=== PATIENT | female | born 1980 | race Hispanic/Latino ===

== ENCOUNTER 2019-03-13 17:32 | Emergency (ER) | payer BC ==
[~2019-03-13] VITALS: Ht 162.6 cm; Wt 69.9 kg
--- OUTSIDE RECORDS SUMMARY | 2019-03-13 17:34 | XMS REPORT ---
Author Author Washington Bragg Organization eClinicalWorks Address Unknown Phone Unavailable Care Team Providers Care Natural Gas Trader Name Role Phone Washington Bragg CP Unavailable Allergies, Adverse Reactions, Alerts Substance Reaction Event Type N.K.D.A. Info Not Available Non Drug Allergy Problems Problem Type Condition Code Onset Dates Condition Status Problem Rheumatoid arthritis with positive rheumatoid factor M05.9 Active Assessment Rheumatoid arthritis with positive rheumatoid factor M05.9 Active Problem Other prison (current) drug therapy Z79.899 Active Assessment Other terminal superintendent (current) drug therapy Z79.899 Active Medications Medication Code System Code Instructions Start Date End Date Status Dosage Iron NDC 10201614229 325 (65 Fe) MG Orally Once a day Active 1 tablet Folic Acid NDC 29025191533 1 MG Orally Once a day October 22, 2017 Feb 19, 2018 Active 1 tablet Methotrexate NDC 0 2.5mg Orally Once a week October 22, 2017 Feb 19, 2018 Active 4 tabs altogether x 1wk and then take 6 tabs PredniSONE NDC 0 5 MG Orally Once a day October 22, 2017 Feb 19, 2018 Active 1 tab prn Vital Signs Date/Time: October 22, 2017 BMI 29.67 Index Weight 142 lbs Height 58 in Temperature 98.1 F Cardiac Monitoring Heart Rate 72 /min Blood Pressure Diastolic 80 mm Hg Blood Pressure Systolic 128 mm Hg Results No Known Results Summary Purpose eClinicalWorks Submission
--- OUTSIDE RECORDS SUMMARY | 2019-03-13 17:34 | XMS REPORT ---
Author Author Chase Mcguire Organization eClinicalWorks Address Unknown Phone Unavailable Care Team Providers Care Intervention Specialist Name Role Phone Chase Mcguire CP Unavailable Allergies No Known Allergies Problems Problem Type Condition Code Onset Dates Condition Status Problem Other senior living (current) drug therapy Z79.899 Active Problem Rheumatoid arthritis with positive rheumatoid factor M05.9 Active Medications No Known Medications Results No Known Results Summary Purpose [facility] Submission
--- OUTSIDE RECORDS SUMMARY | 2019-03-13 17:34 | XMS REPORT | Continuity of Care Document ---
Author Author [facility] Address Unknown Phone Unavailable Care Team Providers Care Molded Goods Spot Picker Name Role Phone [employer] Unavailable Unavailable Problems Problem Status Onset Date Classification Date Reported Comments Source Rheumatoid arthritis with positive rheumatoid factor Active Problem 01/15/2019 Guerrero Mcguire Other oil heaterman (current) drug therapy Active Problem 01/15/2019 Guerrero Mcguire Polyarthralgia Active Problem 01/26/2016 Guerrero Mcguire Medications Medication Details Route Status Patient Instructions Ordering Provider Order Date Source Folic Acid 1 tablet Orally Active 1 MG Orally Once a day 10/22/2017 Guerrero Mcguire Methotrexate 4 tabs altogether x 1wk and then take 6 tabs Orally Active 2.5mg Orally Once a week 10/22/2017 Guerrero Mcguire PredniSONE 1 tab prn Orally Active 5 MG Orally Once a day 10/22/2017 Guerrero Mcguire PredniSONE 1 tab prn Orally Active 5 MG Orally Once a day 10/22/2017 Guerrero Mcguire Methotrexate 6 tabs altogether Orally Active 2.5mg Orally Once a week 10/22/2017 Guerrero Mcguire Methotrexate (Anti-Rheumatic) 4 tabs altogether once a week Orally Active 2.5 MG Orally once a week 01/24/2016 Guerrero Mcguire Folic Acid 1 tablet Orally Active 1 MG Orally Once a day 01/24/2016 Guerrero Mcguire Necon 0.5/35 (28) 1 tablet Orally Active 0.5-35 MG-MCG Orally Once a day 01/24/2016 Guerrero Mcguire PredniSONE 1 tab Orally Active 5 MG Orally Once a day 01/24/2016 Guerrero Mcguire Iron 1 tablet Orally Active 325 (65 Fe) MG Orally Once a day Guerrero Mcguire Calcium one tab orally Active 1500 mg orally daily Guerrero Mcguire Fenofibrate 1 tablet Orally Active 145 MG Orally Once a day Guerrero Mcguire Methotrexate 8 tablets by mouth Active 2.5 MG by mouth once a week Yemi Guerrero Mcguire Folic Acid 1 tablet by mouth Active 1 MG by mouth Once a day Yemi Guerrero Mcguire Allergies, Adverse Reactions, Alerts Substance Category Reaction Severity Reaction type Status Date Reported Comments Source N.K.D.A. Adverse Reaction Info Not Available Adverse Reaction Active 01/09/2019 Guerrero Mcguire Immunizations No Data Provided for This Section Results No Data Provided for This Section Pathology Reports No Data Provided for This Section Diagnostic Reports No Data Provided for This Section Consultation Notes No Data Provided for This Section Discharge Summaries No Data Provided for This Section History and Physicals No Data Provided for This Section Vital Signs Vital Sign Value Date Comments Source Weight 154.2 01/09/2019 Guerrero Mcguire Height 58 01/09/2019 Guerrero Mcguire Temperature Oral (F) 98.5 F 01/09/2019 Guerrero Mcguire Heart Rate 72 01/09/2019 Guerrero Mcguire Diastolic (mm Hg) 68 01/09/2019 Guerrero Mcguire Systolic (mm Hg) 110 01/09/2019 Guerrero Mcguire Weight 156.5 09/23/2018 Guerrero Mcguire Height 58 09/23/2018 Guerrero Mcguire Temperature Oral (F) 98.3 F 09/23/2018 Guerrero Mcguire Heart Rate 74 09/23/2018 Guerrero Mcguire Diastolic (mm Hg) 70 09/23/2018 Guerrero Mcguire Systolic (mm Hg) 110 09/23/2018 Guerrero Mcguire Weight 142 10/22/2017 Guerrero Mcguire Height 58 10/22/2017 Guerrero Mcguire Temperature Oral (F) 98.1 F 10/22/2017 Guerrero Mcugire Heart Rate 72 10/22/2017 Guerrero Mcguire Diastolic (mm Hg) 80 10/22/2017 Guerrero Mcguire Systolic (mm Hg) 128 10/22/2017 Guerrero Mcguire Weight 142.2 10/31/2016 Guerrero Mcguire Height 58 10/31/2016 Guerrero Mcguire Temperature Oral (F) 98.5 F 10/31/2016 Guerrero Mcguire Heart Rate 72 10/31/2016 Guerrero Mcguire Diastolic (mm Hg) 70 10/31/2016 Guerrero Mcguire Systolic (mm Hg) 100 10/31/2016 Guerrero Mcguire Weight 144 01/24/2016 Guerrero Mcguire Height 58.5 01/24/2016 Guerrero Mcguire Temperature Oral (F) 97.4 F 01/24/2016 Guerrero Mcguire Heart Rate 76 01/24/2016 Guerrero Mcguire Diastolic (mm Hg) 78 01/24/2016 Guerrero Mcguire Systolic (mm Hg) 122 01/24/2016 Guerrero Lewiser Encounters Location Location Details Encounter Type Encounter Number Reason For Visit Attending Provider ADM Date DC Date Status Source Chase Mcguire MD pain arm [id number] 08/26/2014 08/26/2014 Guerrero Mcguire MD pain arm [id number] 08/26/2014 08/26/2014 Guerrero Mcguire MD PAIN ON HANDS [id number] 01/24/2016 01/24/2016 Guerrero Mcguire MD PAIN ON HANDS [id number] 01/24/2016 01/24/2016 Guerrero Mcguire MD NS APPT 07/17 [id number] 07/17/2016 07/17/2016 Guerrero Mcguire Procedures No Data Provided for This Section Assessment and Plan No Data Provided for This Section Plan of Care No Data Provided for This Section Social History Social History Date Source Social History ElementQualifiersDate Reported Diet: no. Jan 24, 2016 Alcohol Screening: . Points: 1 Jan 24, 2016 Tobacco Use: . Are you a:: current smoker , How often do you smoke cigarettes?: every day, How many cigarettes a day do you smoke?: 6-10, How soon after you wake up do you smoke your first cigarette?: 6-30 min Jan 24, 2016 Marital Status: . Jan 24, 2016 Caffeine: yes. frequency:, 1-5 Jan 24, 2016 Exercise: no. Jan 24, 2016 Alcohol: socially. Type: , beer Jan 24, 2016 Occupation: . house Jan 24, 2016 01/24/2016 Guerrero Mcguire Family History No Data Provided for This Section Advance Directives No Data Provided for This Section Functional Status No Data Provided for This Section
--- OUTSIDE RECORDS SUMMARY | 2019-03-13 17:34 | XMS REPORT ---
Author Author Washington Bragg [facility] eClinicalWorks Address Unknown Phone Unavailable Care Team Providers Care Flame Annealing Machine Setter Name Role Phone Washington Bragg Unavailable Allergies, Adverse Reactions, Alerts Substance Reaction Event Type N.K.D.A. Info Not Available Non Drug Allergy Problems Problem Type Condition Code Onset Dates Condition Status Problem Rheumatoid arthritis with positive rheumatoid factor M05.9 Active Problem Other long-term (current) drug therapy Z79.899 Active Assessment Rheumatoid arthritis with positive rheumatoid factor M05.9 Active Assessment Other petroleum terminal plant operator (current) drug therapy Z79.899 Active Medications Medication Code System Code Instructions Start Date End Date Status Dosage Folic Acid [facility] 68434709197 1 MG Orally Once a day October 22, 2017 Active 1 tablet Iron [facility] 22917679231 325 (65 Fe) MG Orally Once a day Active 1 tablet PredniSONE ND 51169696686 5 MG Orally Once a day October 22, 2017 December 22, 2018 Active 1 tab prn Methotrexate ND 84962507010 2.5mg Orally Once a week October 22, 2017 December 22, 2018 Active 6 tabs altogether Vital Signs Date/Time: September 23, 2018 BMI 32.70 Index Weight 156.5 lbs Height 58 in Temperature 98.3 F Cardiac Monitoring Heart Rate 74 /min Blood Pressure Diastolic 70 mm Hg Blood Pressure Systolic 110 mm Hg Results Name Result Date Reference Range Unit Abnormality Flag CBC W/AUTO DIFF ----MONOCYTES 5.9 [id number] 4.0-13.0 % ----LYMPHOCYTES 26.7 20180923 19.0-48.0 % ----HEMOGLOBIN 15.0 20180923 11.5-15.5 G/DL ----HEMATOCRIT 43.3 20180923 34.0-45.0 % ----MCV 88.4 20180923 80.0-100.0 fL ----MCH 30.6 20180923 27.0-34.0 PG ----MCHC 34.6 28152788 32.0-35.5 G/DL ----PLATELET COUNT 308 33920462 130-400 K/UL ----RDW 12.9 60869618 11.0-15.0 % ----BASOPHILS 0.4 64454649 0.0-2.0 % ----WBC 10.2 99019865 4.0-11.0 K/UL ----NEUTROPHILS 65.7 45278367 40.0-74.0 % ----RBC 4.90 39299031 3.80-5.10 M/UL ----EOSINOPHILS 1.3 95864365 0.0-7.0 % C-REACTIVE PROTEIN ----C-REACTIVE PROTEIN 0.5 40038709 <0.5 MG/DL COMPREHENSIVE METABOLIC PANEL ----CALC A/G RATIO 1.8 84799062 1.0-2.6 RATIO ----CALC GLOBULIN 2.5 55980801 1.9-3.7 G/DL ----ALKALINE PHOSPHATASE 122 37017599 40-112 U/L H ----BILIRUBIN, TOTAL 0.3 31117217 <=1.2 MG/DL ----CHLORIDE 106 85000264 95-107 MEQ/L ----ALT 18 45544497 5-40 U/L ----POTASSIUM 3.9 99689941 3.5-5.4 MEQ/L ----AST 13 82960708 9-40 U/L ----SODIUM 144 13132096 133-146 MEQ/L ----CALC BUN/CREAT 19 19134214 6-28 RATIO ---- eGFR NON- AMER. 121 51213449 >60 ML/MIN/1.73 ----CALCIUM 9.2 34084777 8.5-10.5 MG/DL ----CARBON DIOXIDE 27 33328721 19-31 MEQ/L ----ALBUMIN 4.4 96517683 3.5-5.2 G/DL ----PROTEIN, TOTAL 6.9 81360947 6.1-8.3 G/DL ----GLUCOSE 108 50717152 70-99 MG/DL H ----BUN 10 90273901 6-20 MG/DL ----CREATININE 0.54 07191879 0.60-1.30 MG/DL L ---- eGFR AMER. 141 59650731 >60 ML/MIN/1.73 SEDIMENTATION RATE ----SEDIMENTATION RATE 8 76158813 0-20 MM/HOUR Summary Purpose eClinicalWorks Submission
--- OUTSIDE RECORDS SUMMARY | 2019-03-13 17:34 | XMS REPORT ---
Author Author Washington Bragg [facility] eClinicalWorks Address Unknown Phone Unavailable Care Team Providers Care Airport Operations Duty Manager Name Role Phone Washington Bragg Unavailable Allergies, Adverse Reactions, Alerts Substance Reaction Event Type N.K.D.A. Info Not Available Non Drug Allergy Encounters Encounter Location Date pain arm Chase Mcguire MD August 26, 2014 PAIN ON HANDS Chase Mcguire MD Jan 24, 2016 Problems Problem Type Condition ICD-9 Code Onset Dates Condition Status Problem Other skilled nursing (current) drug therapy Z79.899 Active Problem Polyarthralgia 719.49 Active Problem Rheumatoid arthritis with positive rheumatoid factor M05.9 Active Assessment Rheumatoid arthritis with positive rheumatoid factor M05.9 Active Assessment Other intermediate manager (current) drug therapy Z79.899 Active Medications Medication Code System Code Instructions Start Date End Date Status Dosage [facility] [address]-43 2.5 MG Orally Jan 24, 2016 Active 4 tabs altogether once a week Folic Acid [facility] [address]-21 1 MG Orally Once a day Jan 24, 2016 Mar 24, 2016 Active 1 tablet Necon 0.5/35 (28) [facility] [address]-99 0.5-35 MG-MCG Orally Once a day Jan 24, 2016 Active 1 tablet PredniSONE Unknown 0 5 MG Orally Once a day Jan 24, 2016 Mar 24, 2016 Active 1 tab Social History Social History Element Qualifiers Date Reported Diet: no. Jan 24, 2016 Alcohol Screening: . Points: Jan 24, 2016 Tobacco Use: . Are [...] 2016 Occupation: . house Jan 24, 2016 Vital Signs Date/Time: Jan 24, 2016 Weight 144 lbs Height 58.5 in Temperature 97.4 F Cardiac Monitoring Heart Rate 76 /min Blood Pressure Diastolic 78 mm Hg Blood Pressure Systolic 122 mm Hg Summary Purpose eClinicalWorks Submission
--- OUTSIDE RECORDS SUMMARY | 2019-03-13 17:34 | XMS REPORT ---
Author Author Chase Mcguire Organization eClinicalWorks Address Unknown Phone Unavailable Care Team Providers Care Cost And Risk Analysis Manager Name Role Phone Chase Mcguire CP Unavailable Allergies No Known Allergies Problems Problem Type Condition Code Onset Dates Condition Status Problem Rheumatoid arthritis with positive rheumatoid factor M05.9 Active Problem Other termination clerk (current) drug therapy Z79.899 Active Medications No Known Medications Results No Known Results Summary Purpose [facility] Submission
--- OUTSIDE RECORDS SUMMARY | 2019-03-13 17:34 | XMS REPORT ---
Author Author Chase Mcguire [facility] eClinicalWorks Address Unknown Phone Unavailable Care Team Providers Care Clerk Checker Name Role Phone Chase Mcguire Unavailable Encounters Encounter Location Date pain arm Chase Mcguire MD August 26, 2014 PAIN ON HANDS Chase Mcguire MD Jan 24, 2016 NS APPT 07/17 Chase Mcguire MD Jul 17, 2016 Problems Problem Type Condition ICD-9 Code Onset Dates Condition Status Problem Other retirement (current) drug therapy Z79.899 Active Problem Rheumatoid arthritis with positive rheumatoid factor M05.9 Active Social History Social History Element Qualifiers Date [...] 2016 Occupation: . house Jan 24, 2016 Summary Purpose eClinicalWorks Submission
--- OUTSIDE RECORDS SUMMARY | 2019-03-13 17:34 | XMS REPORT ---
Author Author [facility] Address Unknown Phone Unavailable Care Team Providers Care Assembler Gold Frame Name Role Phone Unavailable Unavailable Payers Payer Name Policy Type Policy Number Effective Date Expiration Date Problems This patient has no known problems. Allergies, Adverse Reactions, Alerts This patient has no known allergies or adverse reactions. Medications This patient has no known medications.
--- OUTSIDE RECORDS SUMMARY | 2019-03-13 17:34 | XMS REPORT ---
Author Author Washington Bragg [facility] eClinicalWorks Address Unknown Phone Unavailable Care Team Providers Care Center Punch Operator Name Role Phone Washington Bragg Unavailable Allergies, Adverse Reactions, Alerts Substance Reaction Event Type N.K.D.A. Info Not Available Non Drug Allergy Problems Problem Type Condition Code Onset Dates Condition Status Problem Other penitentiary (current) drug therapy Z79.899 Active Assessment Rheumatoid arthritis with positive rheumatoid factor M05.9 Active Problem Rheumatoid arthritis with positive rheumatoid factor M05.9 Active Assessment Other long term care social worker (current) drug therapy Z79.899 Active Medications Medication Code System Code Instructions Start Date End Date Status Dosage Calcium NDC 0 1500 mg orally daily Active one tab Methotrexate (Anti-Rheumatic) [facility] [address]-16 2.5 MG Orally once a week Jan 24, 2016 Active 4 tabs altogether once a week Fenofibrate [facility] [address]-50 145 MG Orally Once a day Active 1 tablet Folic Acid [facility] [address]-56 1 MG Orally Once a day Jan 24, 2016 Feb 28, 2017 Active 1 tablet Vital Signs Date/Time: October 31, 2016 BMI 29.72 Index Weight 142.2 lbs Height 58 in Temperature 98.5 F Cardiac Monitoring Heart Rate 72 /min Blood Pressure Diastolic 70 mm Hg Blood Pressure Systolic 100 mm Hg Results Name Result Date Reference Range Unit Abnormality Flag COMPREHENSIVE METABOLIC PANEL W/EGFR ----CALCIUM 9.2 10604007 8.6-10.2 mg/dL N ----CARBON DIOXIDE 27 93435085 20-31 mmol/L N ----ALT 19 40097440 6-29 U/L N ----CREATININE 0.71 45746521 0.50-1.10 mg/dL N ----AST 15 32879545 10-30 U/L N ----eGFR NON-AFR. WELSH 111 17156894 > OR=60 mL/min/1.73m2 N ----ALKALINE PHOSPHATASE 69 16837435 33-115 U/L N ----eGFR 129 20161031 > OR=60 mL/min/1.73m2 N ----BILIRUBIN, TOTAL 0.4 03950363 0.2-1.2 mg/dL N ----BUN/CREATININE RATIO NOT APPLICABLE 36154955 6-22 (calc) ----ALBUMIN/GLOBULIN RATIO 1.8 35203566 1.0-2.5 (calc) N ----SODIUM 137 44158138 135-146 mmol/L N ----GLOBULIN 2.4 33011916 1.9-3.7 g/dL (calc) N ----POTASSIUM 4.5 35333991 3.5-5.3 mmol/L N ----GLUCOSE 90 68920144 65-99 mg/dL N ----CHLORIDE 105 61885764 98-110 mmol/L N ----ALBUMIN 4.3 10758105 3.6-5.1 g/dL N ----UREA NITROGEN (BUN) 14 20161031 7-25 mg/dL N ----PROTEIN, TOTAL 6.7 32601685 6.1-8.1 g/dL N SED RATE BY MODIFIED WESTERGREN ----SED RATE BY MODIFIED WESTERGREN 2 94084309 < OR=20 mm/h N C-REACTIVE PROTEIN ----C-REACTIVE PROTEIN <0.10 38415501 <0.80 mg/dL N CBC (INCLUDES DIFF/PLT) ----MCHC 33.5 41820845 32.0-36.0 g/dL N ----MCH 32.1 25159101 27.0-33.0 pg N ----PLATELET COUNT 281 32017866 140-400 Thousand/uL N ----RDW 13.6 32952700 11.0-15.0 % N ----BASOPHILS 0.3 36492464 % N ----ABSOLUTE NEUTROPHILS 6072 33712899 1623-2697 cells/uL N ----ABSOLUTE LYMPHOCYTES 2803 90220622 850-3900 cells/uL N ----MPV 8.1 38099712 7.5-12.5 fL N ----ABSOLUTE BASOPHILS 29 89935566 0-200 cells/uL N ----HEMATOCRIT 42.8 07009656 35.0-45.0 % N ----NEUTROPHILS 62.6 78385995 % N ----MCV 95.8 11357259 80.0-100.0 fL N ----RED BLOOD CELL COUNT 4.47 62224624 3.80-5.10 Million/uL N ----ABSOLUTE MONOCYTES 669 77586670 200-950 cells/uL N ----ABSOLUTE EOSINOPHILS 126 38023493 15-500 cells/uL N ----HEMOGLOBIN 14.4 12786702 11.7-15.5 g/dL N ----EOSINOPHILS 1.3 95485944 % N ----WHITE BLOOD CELL COUNT 9.7 68852428 3.8-10.8 Thousand/uL N ----LYMPHOCYTES 28.9 03514640 % N ----MONOCYTES 6.9 36273956 % N Summary Purpose eClinicalWorks Submission
--- OUTSIDE RECORDS SUMMARY | 2019-03-13 17:34 | XMS REPORT ---
Author Author Washington Bragg [facility] eClinicalWorks Address Unknown Phone Unavailable Care Team Providers Care Service Porter Name Role Phone Washington Bragg Unavailable Allergies, Adverse Reactions, Alerts Substance Reaction Event Type N.K.D.A. Info Not Available Non Drug Allergy Problems Problem Type Condition Code Onset Dates Condition Status Problem Rheumatoid arthritis with positive rheumatoid factor M05.9 Active Problem Other prison (current) drug therapy Z79.899 Active Assessment Rheumatoid arthritis with positive rheumatoid factor M05.9 Active Assessment Other intermediate teacher (current) drug therapy Z79.899 Active Medications Medication Code System Code Instructions Start Date End Date Status Dosage Iron [facility] 19675477771 325 (65 Fe) MG Orally Once a day Active 1 tablet Methotrexate [facility] 07375741146 2.5 MG by mouth once a week Active 8 tablets Folic Acid [facility] 14506131377 1 MG by mouth Once a day Active 1 tablet Vital Signs Date/Time: January 09, 2019 BMI 32.22 Index Weight 154.2 lbs Height 58 in Temperature 98.5 F Cardiac Monitoring Heart Rate 72 /min Blood Pressure Diastolic 68 mm Hg Blood Pressure Systolic 110 mm Hg Results Name Result Date Reference Range Unit Abnormality Flag CBC W/AUTO DIFF ----MONOCYTES 7.3 82440160 4.0-13.0 % ----LYMPHOCYTES 31.7 58730423 19.0-48.0 % ----HEMOGLOBIN 14.1 78093135 11.5-15.5 G/DL ----HEMATOCRIT 41.0 83796432 34.0-45.0 % ----MCV 92.8 05154789 80.0-100.0 fL ----MCH 31.9 46605749 27.0-34.0 PG ----MCHC 34.4 27216046 32.0-35.5 G/DL ----PLATELET COUNT 246 80506084 130-400 K/UL ----RDW 12.7 95375366 11.0-15.0 % ----BASOPHILS 0.4 10879633 0.0-2.0 % ----WBC 7.2 39414207 4.0-11.0 K/UL ----NEUTROPHILS 59.1 37420392 40.0-74.0 % ----RBC 4.42 61708444 3.80-5.10 M/UL ----EOSINOPHILS 1.5 48422933 0.0-7.0 % C-REACTIVE PROTEIN ----C-REACTIVE PROTEIN 0.2 43645598 <0.5 MG/DL COMPREHENSIVE METABOLIC PANEL ----CALC A/G RATIO 1.8 19585436 1.0-2.6 RATIO ----CALC GLOBULIN 2.4 15409028 1.9-3.7 G/DL ----ALKALINE PHOSPHATASE 109 83697494 40-112 U/L ----BILIRUBIN, TOTAL 0.5 61073175 <=1.2 MG/DL ----CHLORIDE 106 34973021 95-107 MEQ/L ----ALT 16 15533028 5-40 U/L ----POTASSIUM 4.0 94508425 3.5-5.4 MEQ/L ----AST 14 86848134 9-40 U/L ----SODIUM 142 96683343 133-146 MEQ/L ----CALC BUN/CREAT 16 89439295 6-28 RATIO ---- eGFR NON- AMER. 113 47093537 >60 ML/MIN/1.73 ----CALCIUM 9.0 46866180 8.5-10.5 MG/DL ----CARBON DIOXIDE 24 74003849 19-31 MEQ/L ----ALBUMIN 4.4 21811798 3.5-5.2 G/DL ----PROTEIN, TOTAL 6.8 23776266 6.1-8.3 G/DL ----GLUCOSE 99 65380340 70-99 MG/DL ----BUN 11 98864395 6-20 MG/DL ----CREATININE 0.68 60649481 0.60-1.30 MG/DL ---- eGFR AMER. 130 02846545 >60 ML/MIN/1.73 SEDIMENTATION RATE ----SEDIMENTATION RATE 5 10665235 0-20 MM/HOUR Summary Purpose eClinicalWorks Submission
--- OUTSIDE RECORDS SUMMARY | 2019-03-13 17:34 | XMS REPORT ---
Author Author Chase Mcguire Organization eClinicalWorks Address Unknown Phone Unavailable Care Team Providers Care Postal Superintendent Name Role Phone Chase Mcguire CP Unavailable Allergies No Known Allergies Problems Problem Type Condition Code Onset Dates Condition Status Problem Rheumatoid arthritis with positive rheumatoid factor M05.9 Active Problem Other terminal makeup operator (current) drug therapy Z79.899 Active Medications No Known Medications Results No Known Results Summary Purpose [employer]TV [employer] Submission
--- OUTSIDE RECORDS SUMMARY | 2019-03-13 17:34 | XMS REPORT ---
Author Author Chase Mcguire Organization eClinicalWorks Address Unknown Phone Unavailable Care Team Providers Care Parachutist/Combatant Diver Qualified Name Role Phone Chase Mcguire CP Unavailable Allergies No Known Allergies Problems Problem Type Condition Code Onset Dates Condition Status Problem Rheumatoid arthritis with positive rheumatoid factor M05.9 Active Assessment Rheumatoid arthritis with positive rheumatoid factor M05.9 Active Problem Other tank terminal gauger (current) drug therapy Z79.899 Active Assessment Other tank terminal gauger (current) drug therapy Z79.899 Active Medications No Known Medications Results No Known Results Summary Purpose eClinicalWorks Submission
[2019-03-13] MEDS ORDERED: KETOROLAC TROMETHAMINE 30 MG/ML VIAL IV STA (17:49)
[2019-03-13] MEDS ORDERED: SODIUM CHLORIDE 0.9% 1000ML 1,000 ML IV ONE (18:00)
[2019-03-13] MEDS ORDERED: DIPHENHYDRAMINE HCL INJ 50 MG/ML VIAL IV ONE (18:00)
[2019-03-13] MEDS ORDERED: METOCLOPRAMIDE HCL 10 MG/2ML VIAL IV ONE (18:00)
[2019-03-13 19:18] VITALS: BP 132/85
== END 2019-03-13 19:33 | disposition home or self-care (01) ==
LOC: ER 17:32
DX: G43.011 Migraine without aura, intractable, with status migrainosus (principal)
CPT/HCPCS: 99283; J1200; J1885; J2765; J7030